=== PATIENT | male | born 1990 | race Caucasian/White ===

== ENCOUNTER 2017-12-23 13:33 | Emergency (ER) | payer BC ==
[~2017-12-23] VITALS: Ht 177.8 cm; Wt 93.0 kg
[~2017-12-23 13:33] MED LIST: FLOMAX0.4 MG PO; HYDROCODON-ACE1 EACH; NOHOMEMEDICATIONS; PERCOCET 5-3251 EACH PO; ZOFRAN4 MG PO
[2017-12-23] MEDS ORDERED: NORCO 5-325 TA1 EACH PO ×2 (14:46→14:47)
[2017-12-23 15:01] VITALS: BP 146/88
== END 2017-12-23 15:02 | disposition home or self-care (01) ==
LOC: M.ERS 13:33
DX: S59.901A Unspecified injury of right elbow, initial encounter (principal); Z88.8 Allergy status to other drugs, medicaments and biological substances; W01.0XXA Fall on same level from slipping, tripping and stumbling without subsequent striking against object, initial encounter; Y93.89 Activity, other specified; Y92.89 Other specified places as the place of occurrence of the external cause; Y99.8 Other external cause status